=== PATIENT | male | born 1935 | race Caucasian/White ===

== ENCOUNTER → 2018-02-28 | Outpatient (CLI) | payer MEDICARE ==
--- NOTE | 2018-02-28 22:13 | MR ---
EXAMINATION TYPE: MR brain wo/w con DATE OF EXAM: 02/28/2018 COMPARISON: None HISTORY: Paraguesia TECHNIQUE: Multiplanar, multisequence images of the brain and brainstem is performed without and with IV contras t, utilizing 7.5 mL intravenous Gadavist . FINDINGS: Diffusion weighted images demonstrate no evidence of a recent infarct or other diffusion ab normality. There is no extra-axial fluid collection. Periventricular confluent and scattered hyperin tensities are present on inversion recovery and T2-weighted sequences. The ventricular system and cis ternal spaces are normal in size and appearance for the degree of atrophy. The brain volume is age a ppropriate, there is cortical atrophy. Midline structures demonstrate normal morphology. The craniocervical junction appears within normal limits. Post contrast images demonstrate no abnormal enhancement. The dural venous sinuses appear pa tent. The visualized sinuses are remarkable for inflammatory change in the ethmoid air cells and the globes are intact. IMPRESSION: Age-related changes of atrophy and probable chronic small vessel ischemia. No acute abnor mality.
== END | disposition home or self-care (01) ==
LOC: RADMRIMAIN 17:48
PROVIDERS: ATTEND Otolaryngology
DX: G31.1 Senile degeneration of brain, not elsewhere classified (principal)
CPT/HCPCS: 82565; 70553; 36415; A9581

== ENCOUNTER → 2018-03-07 | Outpatient (CLI) | payer MEDICARE ==
[2018-03-07 12:41] LABS: T4, Free (Free Thyroxine) 1.01 ng/dL (0.78-2.19)
== END | disposition home or self-care (01) ==
LOC: LABWHC1 11:08
PROVIDERS: ATTEND Psychiatry & Neurology Neurology
DX: R41.3 Other amnesia (principal)
CPT/HCPCS: 36415; 82607; 82747; 84439; 84443; 85652; 86780

== ENCOUNTER 2020-09-12 10:27 | Emergency (ER) | payer MEDICARE ==
[2020-09-12 11:34] LABS: Appearance,Urine Cloudy (Clear); Bacteria,Urine Occasional /hpf; Bilirubin,Urine Negative (Negative); Blood,Urine Large (Negative); Color,Urine Yellow; Glucose,Urine (UA) Negative (Negative); Ketones,Urine Negative (Negative); Leukocyte Esterase,Urine Large (Negative); Mucus,Urine Moderate /hpf; Nitrite,Urine Negative (Negative); Protein,Urine 1+ (Negative); RBC,Urine >182 /hpf (0-5); Specific Gravity,Urine 1.021 (1.001-1.035); Urobilinogen,Urine <2.0 mg/dL (<2.0); WBC,Urine >182 /hpf (0-5)
[2020-09-12] MEDS ORDERED: CEPHALEXIN 500MG STARTER PACK 4 CAP BTL PO STA (12:09)
--- NOTE | 2020-09-12 12:16 | ED ---
General Adult HPI - General Chief complaint: Urogenital Stated complaint: Blood In Urine Time Seen by Provider: 09/12/20 10:40 Source: patient, family Mode of arrival: ambulatory Limitations: no limitations - History of Present Illness Initial comments: Patient is an 85-year-old male with a past medical history of dementia, hyperlipidemia, hypertension, prostate cancer, glaucoma who presents to the emergency room for a chief complaint of blood in urine. Patient is a poor historian himself secondary to his dementia. reports that she noticed some blood in his urine in his brief. States that this was slightly tinged red. States that she noticed this twice, just started this morning. She also thinks she has been urinating more frequently than normal. Patient has not complained of pain. Patient has not had any fevers at home. Patient has no other complaints at this time including shortness of breath, chest pain, abdominal pain, nausea or vomiting, headache, or visual changes. - Related Data Home Medications Medication Instructions Recorded Confirmed Aspirin 81 mg PO DAILY 02/01/16 02/01/16 Cholecalciferol [Vitamin D3] 2,000 unit PO DAILY 02/01/16 02/02/16 Fish Oil/Dha/Epa [Fish Oil 1,200 1 each PO BID 02/01/16 02/01/16 mg Fish Oil] Latanoprost Ophth [Xalatan 0.005%] 1 drops BOTH EYES HS 02/01/16 02/02/16 Simvastatin [Zocor] 10 mg PO HS 02/01/16 02/02/16 Stool Softner 1 tab PO TID 02/01/16 02/01/16 Vit C/E/Zn/Coppr/Lutein/Zeaxan 1 each PO DAILY 02/01/16 02/01/16 [Preservision Areds 2 Softgel] Previous Rx's Medication Instructions Recorded Cephalexin [Keflex] 500 mg PO TID 10 Days #30 cap 09/12/20 Allergies Allergy/AdvReac Type Severity Reaction Status Date / Time codeine Allergy Rash/Hives Verified 09/12/20 10:37 Review of Systems ROS Statement: Those systems with pertinent positive or pertinent negative responses have been documented in the HPI. ROS Other: All systems not noted in ROS Statement are negative. Past Medical History Past Medical History: Cancer, Eye Disorder, Hyperlipidemia, Hypertension Additional Past Medical History / Comment(s): HX PROSTATE CA 2005?, GLAUCOMA History of Any Multi-Drug Resistant Organisms: None Reported Past Surgical History: Hernia Repair, Joint Replacement, Prostate Surgery Additional Past Surgical History / Comment(s): COLONOSCOPY 2006 WITH A POLYP, LT HIP REPLACEMENT, RT ING HERNIA REPAIR Past Anesthesia/Blood Transfusion Reactions: No Reported Reaction Past Psychological History: No Psychological Hx Reported Smoking Status: Never smoker Past Alcohol Use History: None Reported Past Drug Use History: None Reported - Past Family History Mother Family Medical History: Diabetes Mellitus Father Family Medical History: No Reported History Additional Family Medical History / Comment(s): @ AGE 88 General Exam Limitations: no limitations General appearance: alert, in no apparent distress Head exam: Present: atraumatic, normocephalic, normal inspection Eye exam: Present: normal appearance, PERRL, EOMI. Absent: scleral icterus, conjunctival injection, periorbital swelling ENT exam: Present: normal exam, mucous membranes moist Neck exam: Present: normal inspection, full ROM. Absent: tenderness Respiratory exam: Present: normal lung sounds bilaterally. Absent: respiratory distress, wheezes Cardiovascular Exam: Present: regular rate, normal rhythm, normal heart sounds GI/Abdominal exam: Present: soft, normal bowel sounds. Absent: distended, tenderness, guarding, rebound, rigid exam: Present: normal inspection. Absent: testicular tenderness, urethral discharge, scrotal swelling, vertical testicular lie, circumcision Neurological exam: Present: alert Course Vital Signs 09/12/20 10:33 Temperature 98.7 F Pulse Rate 66 Respiratory 18 Rate Blood Pressure 149/79 O2 Sat by Pulse 97 Oximetry Medical Decision Making - Medical Decision Making Vitals are stable. Patient is afebrile. Patient is pleasant, well-appearing. Abdominal exam is benign. No tenderness. Urinalysis was obtained. This does show greater than 182 red and white blood cells. There is occasional bacteria. Blood is not gross in nature, color of urine is yellow. At this time patient will be started on antibiotics and culture will be sent. Given his history of prostate cancer we will follow up with urology to ensure that hematuria resolves after treatment of infection. He may need additional workup if it does not. He will return here for any worsening symptoms. I did discuss return parameters including if patient is not urinating for over 12 hours or if he develops fevers, vomiting, or worsening symptoms - Lab Data Lab Results 09/12/20 Range/Units 11:23 Urine Color Yellow Urine Appearance Cloudy (Clear) Urine pH 7.0 (5.0-8.0) Ur Specific [place] 1.021 (1.001-1.035) Urine Protein 1+ H (Negative) Urine Glucose (UA) Negative (Negative) Urine Ketones Negative (Negative) Urine Blood Large H (Negative) Urine Nitrite Negative (Negative) Urine Bilirubin Negative (Negative) Urine Urobilinogen <2.0 (<2.0) mg/dL Ur Leukocyte Esterase Large H (Negative) Urine RBC >182 H (0-5) /hpf Urine WBC >182 H (0-5) /hpf Urine WBC Clumps Few H (None) /hpf Urine Bacteria Occasional H (None) /hpf Urine Mucus Moderate H (None) /hpf Disposition Clinical Impression: Hematuria, UTI (urinary tract infection) Disposition: HOME SELF-CARE Condition: Good Instructions (If sedation given, give patient instructions): Urinary Tract Infection in Men (ED) Additional Instructions: Please take antibiotic as directed. Follow up on culture results. He should get a call if you need a new antibiotic. Follow-up with urology. Call Monday for an appointment. Return to the emergency room for any worsening symptoms such as fevers, vomiting, or if patient is not urinating for greater than 12 hours Prescriptions: Cephalexin [Keflex] 500 mg PO TID 10 Days #30 cap Is patient prescribed a controlled substance at d/c from ED?: No Referrals: Faisal Greene MD [Primary Care Provider] - 1-2 days Asif Sharif MD [STAFF PHYSICIAN] - 1-2 days Time of Disposition: 12:15
[2020-09-12 12:34] VITALS: BP 138/78; PULSE 62; RESP 16; TEMP 98.2
== END 2020-09-12 12:34 | disposition home or self-care (01) ==
LOC: EC 10:27
DX: N39.0 Urinary tract infection, site not specified (principal); E78.5 Hyperlipidemia, unspecified; F03.90 Unspecified dementia, unspecified severity, without behavioral disturbance, psychotic disturbance, mood disturbance, and anxiety; I10 Essential (primary) hypertension; Z96.641 Presence of right artificial hip joint
CPT/HCPCS: 81001; 87077; 87086; 87186; 99284

== ENCOUNTER → 2021-01-01 | Outpatient (CLI) | payer MEDICARE ==
--- NOTE | 2021-01-01 15:53 | CT ---
EXAMINATION TYPE: CT brain w con DATE OF EXAM: 01/01/2021 COMPARISON: None HISTORY: CVA. LT hemispheric infarct/neoplasm, expressive aphasia. CT DLP: 1246mGycm CONTRAST: CT scan of the head is performed with IV Contrast, patient injected with 100 mL of Isovue 300. Unenhanced followed by contrast enhanced CT of the brain is submitted for evaluation. The ventricles are midline. Moderate enlargement of the ventricles, basal cisterns and sulci overlying the cerebra l convexities. There is no evidence for intracranial hemorrhage or extra-axial collection. No mass e ffects are identified. Visualized bony calvarium is intact. Contrast is administered and no enhanci ng lesions are detected. No pathologic enhancement is identified. If symptoms persist consider MRI. IMPRESSION: No enhancing lesions identified. No mass effect seen.
== END | disposition home or self-care (01) ==
LOC: RADCTMAIN 13:44
PROVIDERS: ATTEND Psychiatry & Neurology Neurology
DX: I63.9 Cerebral infarction, unspecified (principal); I69.320 Aphasia following cerebral infarction
CPT/HCPCS: 82565; 84520; 70460; 36415; Q9967